=== PATIENT | female | born 1995 | race Caucasian/White ===

== ENCOUNTER 2024-04-28 14:13 | Emergency (ER) | payer OTHER ==
[~2024-04-28] VITALS: Ht 160 cm; Wt 81.6 kg
[2024-04-28] MEDS ORDERED: AMOX-CLAV 875-1 EACH PO (14:33)
== END 2024-04-28 14:36 | disposition home or self-care (01) ==
LOC: ED 14:13
DX: H66.91 Otitis media, unspecified, right ear (principal)

== ENCOUNTER 2024-06-19 13:13 | Emergency (ER) | payer OTHER ==
[~2024-06-19] VITALS: Ht 160 cm; Wt 81.6 kg
[~2024-06-19 13:13] MED LIST: AMOX-CLAV 875-1 EACH PO
[2024-06-19] MEDS ORDERED: Sulfamethoxazole/Trimethopri 1 TAB TAB PO ONE (13:35)
[2024-06-19] MEDS ORDERED: SEPTDS PO (13:37)
== END 2024-06-19 13:48 | disposition home or self-care (01) ==
LOC: ED 13:13
DX: N61.0 Mastitis without abscess (principal)